=== PATIENT | female | born 1950 | race Caucasian/White ===

== ENCOUNTER 2023-03-22 19:48 | Emergency (ER) | payer MEDICARE, OTHER, SELFPAY ==
--- NOTE | ~2023-03-22 | CT_ITS ---
EXAMINATION: CT facial bones wo con DATE: 03/22/2023 21:15 INDICATION: fall . TECHNIQUE: Computed tomography (CT) of the facial bones and maxillofacial region was performed withou t intravenous contrast. Automated exposure control and iterative reconstruction technique were employ ed. The dose-length product was 292.04 mGy-cm. COMPARISON: None. FINDINGS: Soft Tissues: Mild left frontal and medial left periorbital soft tissue swelling. Facial bones: Slightly depressed transverse nasal bone fracture. No other acute fracture. No lytic o r blastic process. Eyes: The globes are intact. The soft tissue planes of the orbits are maintained. Bilateral lens re placements. Paranasal Sinuses: Anterior ethmoid mucosal thickening. Retention cyst or polyp in the left maxillar y sinus. The remaining aerated spaces are clear.. Foreign Bodies: No radiopaque foreign bodies. Other Findings: None. IMPRESSION: Slightly depressed transverse nasal bone fracture. No other acute finding detected. Reviewed, dictated and finalized at location K. IMPRESSION: Slightly depressed transverse nasal bone fracture. No other acute finding detec axel.
--- NOTE | ~2023-03-22 | XR_ITS ---
EXAM: XR hand RT min 3V DATE: 03/22/2023 21:20 HISTORY: Fall. Pain to R 4th MCP joint . COMPARISON: None available. FINDINGS: Slightly decreased mineralization. No fracture or dislocation. No lytic or blastic lesion. Scattered degenerative changes, most severe at the second DIP joint. No erosion or periosteal change . Soft tissues within normal limits. IMPRESSION: No acute osseous finding in the right hand. Reviewed, dictated and finalized at location K.
--- NOTE | ~2023-03-22 | CT_ITS ---
EXAMINATION: CT brain wo con DATE: 03/22/2023 21:13 INDICATION: fall . TECHNIQUE: Computed tomography (CT) of the head was performed without intravenous contrast. The mA wa s adjusted according to patient size. Iterative reconstruction technique was employed. The dose-lengt h product was 605.33 mGy-cm. COMPARISON: None. FINDINGS: No acute intracranial hemorrhage or extra-axial fluid collection. No hydrocephalus, mass, or herniation. No acute ischemic infarct. Unremarkable dural venous sinus attenuation. No acute osseous abnormality. Small left frontal contusion. Mucosal thickening in the anterior ethmoid air cells, the remaining aerated spaces are clear. Mild atrophy and chronic white matter change. Atherosclerotic intracranial calcification. Bilateral l ens replacements. Right basal ganglia calcification. IMPRESSION: No acute intracranial process. Reviewed, dictated and finalized at location K.
[2023-03-22 19:50] VITALS: BP 140/71; PULSE 68; RESP 16; TEMP 36.3; O2SAT 98
--- NOTE | 2023-03-22 21:11 | ED.FALL ---
HPI - Fall General Chief Complaint: Fall Stated Complaint: fall Time Seen by Provider: 03/22/23 20:48 Source: patient Mode of arrival: ambulatory Limitations: no limitations History of Present Illness HPI Narrative: This is a 72-year-old female who presents to the ED with chief complaint of mechanical fall occurring just prior to arrival. She states she was walking through her living room and tripped on something on the ground. This caused her to fall and hit her head on the glass vase she had in her hand. She had an immediate pain to the nose, chin, right ring finger. She reports a small laceration to the bridge of the nose. Denies any LOC. Denies blood thinners. Denies neurologic symptoms. Denies any further sites of pain or injury. Related Data Home Medications Medication Instructions Recorded Confirmed fluoxetine 20 mg tablet 20 mg PO DAILY 10/04/19 04/11/21 hydrochlorothiazide 25 mg tablet 25 mg PO DAILY 10/04/19 04/11/21 irbesartan 150 mg tablet 150 mg PO DAILY 10/04/19 04/11/21 pramipexole 0.25 mg tablet 0.25 mg PO HS 10/04/19 04/11/21 pravastatin 40 mg tablet 40 mg PO HS 10/04/19 04/11/21 cholecalciferol (vitamin D3) 25 25 mcg PO DAILY 04/11/21 04/11/21 mcg (1,000 unit) capsule Allergies Allergy/AdvReac Type Severity Reaction Status Date / Time metronidazole Allergy Severe Swelling Verified 03/22/23 20:33 of Lip/Tongue/Throat Review of Systems Review of Systems: CONSTITUTIONAL: Denies fever, chills, or sweats. EYES: Denies visual changes, redness, or discharge. ENT: Denies rhinorrhea, congestion, sore throat, or otalgia. CARDIOVASCULAR: Denies chest pain, palpitations, or edema. RESPIRATORY: Denies cough or dyspnea. GASTROINTESTINAL: Denies abdominal pain, nausea, vomiting, or diarrhea. GENITOURINARY: Denies dysuria or hematuria. SKIN: See HPI MUSCULOSKELETAL: See HPI NEUROLOGIC: Denies headache, numbness, dizziness, or weakness. PSYCHIATRIC: Denies anxiety or depression. [facility] Past Medical History Medical History Arthritis Family History Family History Sibling Family history of malignant melanoma Other Cerebrovascular accident Hypertension Social History Social History Smoking status: Never smoker Alcohol intake: current Living arrangements: with roommate(s) Occupation/Education: retired Gender identity (if verbalized by the patient): Female Exam Narrative: GENERAL: Well-appearing, well-nourished, and in no acute distress. HEAD: Normocephalic, atraumatic. EYES: PERRLA and EOMI. ENT: Nares clear, no rhinorrhea or epistaxis. Mucous membranes moist. Oropharynx without tonsillar hypertrophy exudate or other lesions. Slight ecchymosis to the bridge of the nose. There is a very superficial 1 cm laceration that is well approximated to the bridge of the nose. No active bleeding. No foreign bodies NECK: Supple. No adenopathy or masses. CHEST: No respiratory distress. Clear to auscultation. No wheezes rales or rhonchi HEART: Regular rate and rhythm. No murmur heard. Normal peripheral pulses. ABDOMEN: Soft, nontender, nondistended, normal active bowel sounds. MSK: Normal range of motion. No edema. SKIN: Warm, dry, no rash. NEURO: Alert and oriented x3. No focal deficits. PSYCH: Normal mood and affect. Course Vital Signs Vital signs: Vital Signs Temperature 97.4 F L 03/22/23 19:50 Pulse Rate 68 03/22/23 19:50 Respiratory Rate 16 03/22/23 19:50 Blood Pressure 140/71 03/22/23 19:50 Pulse Oximetry 98 03/22/23 19:50 Oxygen Delivery Room Air 03/22/23 19:50 Temperature 97.4 F L 03/22/23 19:50 Pulse Rate 68 03/22/23 19:50 Respiratory Rate 16 03/22/23 19:50 Blood Pressure 140/71 03/22/23 19:50 Pulse Oximetry 98 03/22/23 19:50 Oxygen Delivery Room Air 03/04
== END 2023-03-22 22:42 | disposition home or self-care (01) ==
PROVIDERS: Emergency Provider Physician Assistant
DX: S02.2XXA Fracture of nasal bones, initial encounter for closed fracture (principal); S01.21XA Laceration without foreign body of nose, initial encounter; M19.90 Unspecified osteoarthritis, unspecified site; W18.09XA Striking against other object with subsequent fall, initial encounter
CPT/HCPCS: 12011; 70450; 70486; 73130; 99284

== ENCOUNTER 2024-08-23 10:33 | Outpatient (CLI) | payer MEDICARE, OTHER, SELFPAY ==
--- NOTE | ~2024-08-23 | XR_ITS ---
Left Hand Technique: PA, oblique, and lateral views were obtained. Clinical History: Carpal tunnel syndrome Findings: No acute fracture or dislocation is seen. Osseous alignment is anatomic. There is moderate degenerative change of the first CMC joint. There are mild degenerative change of the DIP joints. Sof t tissues are unremarkable. Impression: Degenerative changes as above. Reviewed, dictated and finalized at location . Impression: Degenerative changes as above.
--- NOTE | ~2024-08-23 | XR_ITS ---
Right Hand Technique: PA, oblique, and lateral views were obtained. Clinical History: Carpal tunnel syndrome Findings: No acute fracture or dislocation is seen. There is severe degenerative change of the second DIP joint. There is moderate degenerative change of the interphalangeal joint of the thumb, and mild degenerative change of the first CMC joint and first MCP joint. Soft tissues are unremarkable. Impression: Degenerative changes, as above. Reviewed, dictated and finalized at location M. Impression: Degenerative changes, as above.
== END 2024-08-23 10:34 | disposition home or self-care (01) ==
PROVIDERS: Visit Provider Plastic Surgery
DX: M18.11 Unilateral primary osteoarthritis of first carpometacarpal joint, right hand (principal); M19.041 Primary osteoarthritis, right hand; M18.12 Unilateral primary osteoarthritis of first carpometacarpal joint, left hand; M19.042 Primary osteoarthritis, left hand; G56.03 Carpal tunnel syndrome, bilateral upper limbs
CPT/HCPCS: 73130

== ENCOUNTER 2024-10-20 12:27 | Outpatient (CLI) | payer MEDICARE, SELFPAY ==
--- NOTE | 2024-10-20 14:30 | NEURO_ITS ---
Impression: # Complains of numbness of right hand. ? # Mild/evolving Carpal Tunnel Syndrome. ? # No ulnar neuropathy. ? # Normal needle/EMG exam. # Patient requested only right upper extremity be tested. Nerve Conduction Studies Anti Sensory Summary Table ?Stim Site NR Peak (ms) P-T Amp (?V) Site1 Site2 Delta-P (ms) Dist (cm) Dane (m/s) Right Median Anti Sensory (2-3nd Digit) Wrist ? 3.8 43.7 Wrist 2-3nd Digit 3.8 14.0 37 Wrist ? 4.0 10.7 Wrist 2-3nd Digit 3.8 14.0 37 Right Radial Anti Sensory (Base 1st Digit) Wrist ? 2.7 5.0 Wrist Base 1st Digit 2.7 0.0 Right Ulnar Anti Sensory (5th Digit) Wrist ? 2.5 24.8 Wrist 5th Digit 2.5 14.0 56 Motor Summary Table ?Stim Site NR Onset (ms) O-P Amp (mV) Site1 Site2 Delta-0 (ms) Dist (cm) Dane (m/s) Right Median Motor (Abd Poll Brev) Wrist ? 3.8 2.6 Elbow Wrist 5.0 27.0 54 Elbow ? 8.8 3.1 Right Ulnar Motor (Abd Dig Minimi) Wrist ? 2.3 7.5 A Elbow Wrist 5.4 30.0 56 A Elbow ? 7.7 5.6 B Elbow Wrist 11.5 0.0 F Wave Studies ?NR F-Lat (ms) L-R F-Lat (ms) Right Median (Mrkrs) (Abd Poll Brev) ? 28.88 Right Ulnar (Mrkrs) (Abd Dig Min) ? 28.60 EMG ?Side Muscle Nerve Root Ins Act Fibs Amp Dur Recrt Comment Right 1stDorInt Ulnar C8-T1 Nml Nml Nml Nml Nml Right Ext Indicis Radial (Post Int) C7-8 Nml Nml Nml Nml Nml Right Ext Digitorum Radial (Post Int) C7-8 Nml Nml Nml Nml Nml Right BrachioRad Radial C5-6 Nml Nml Nml Nml Nml Right PronatorTeres Median C6-7 Nml Nml Nml Nml Nml Right Abd Poll Brev Median C8-T1 Nml Nml Nml Nml Nml Right ABD Dig Min Ulnar C8-T1 Nml Nml Nml Nml Nml MTDD
== END 2024-10-20 12:28 | disposition home or self-care (01) ==
LOC: ANHNEURO 12:29
PROVIDERS: Visit Provider Plastic Surgery
DX: G56.01 Carpal tunnel syndrome, right upper limb (principal)
CPT/HCPCS: 95886; 95909